=== PATIENT | female | born 1995 | race Caucasian/White ===

== ENCOUNTER 2021-01-28 06:50 | Inpatient (IN) | payer BC ==
--- NOTE | 2021-01-28 07:21 | PCM.LDHP ---
L&D History of Present Illness - General Date of Service: 01/28/21 Admit Problem/Dx: Admission Diagnosis/Problem Admission Diagnosis/Problem - History of Present Illness Introduction:: 25 year old at 39w1d presented for induction of labor. C with myself without complications. - Related Data Allergies/Adverse Reactions: Allergies Allergy/AdvReac Type Severity Reaction Status Date / Time No Known Allergies Allergy Verified 04/14/18 10:03 CDT H&P Review of Systems - Review of Systems: Review Of Systems: See Below General: Reports: No Symptoms HEENT: Reports: No Symptoms Pulmonary: Reports: No Symptoms Cardiovascular: Reports: No Symptoms Gastrointestinal: Reports: No Symptoms Genitourinary: Reports: No Symptoms Musculoskeletal: Reports: No Symptoms Skin: Reports: No Symptoms Psychiatric: Reports: No Symptoms Neurological: Reports: No Symptoms Hematologic/Lymphatic: Reports: No Symptoms Immunologic: Reports: No Symptoms L&D Exam - Exam Exam: See Below - OB Specific Contraction Intensity: Irritability Movement: Active Heart Tones: Present Heart Rate (FHR) Variability: Moderate (6-25 bmp) Presentation: Vertex - Kahn Score Kahn Score Cervix Position: Midposition Kahn Score Consistency: Medium Kahn Score Effacement: 51-70% Kahn Score Dilation: 1-2 cm Kahn Score Infant's Station: -3 Kahn Score Total: 5 - Exam General: Alert, Oriented HEENT: PERRLA, Conjunctiva Clear, EACs Clear, EOMI, Hearing Intact, Mucosa Moist & [place], Nares Patent, Normal Nasal Septum, Posterior Pharynx Clear, TMs Clear Neck: Supple, Trachea Midline Lungs: Clear to Auscultation, Normal Respiratory Effort Cardiovascular: Regular Rate, Regular Rhythm GI/Abdominal Exam: Normal Bowel Sounds, Soft, Non-Tender, No Organomegaly, No Distention, No Abnormal Bruit, No Mass, Pelvis Stable Rectal Exam: Normal Exam, Normal Rectal Tone Genitourinary: Normal external exam, Normal bimanual exam, Normal speculum exam Back Exam: Normal Inspection, Full Range of Motion Extremities: Normal Inspection, Normal Range of Motion, Non-Tender, No Pedal Edema, Normal Capillary Refill Skin: Warm, Dry, Intact Neurological: Cranial Nerves Intact, Reflexes Equal Bilateral Psychiatric: Alert, Normal Affect, Normal Mood Problem List Initiated/Reviewed/Updated: Yes Orders Last 24hrs: Here for induction. Understands fairly unfavorable cervix. Plan kidd bulb and cytotec.
[2021-01-28] MEDS ORDERED: Misoprostol 25 MCG (1/4 of 100 MCG) Tab ONE (07:44)
[2021-01-28] MEDS ORDERED: Misoprostol 25 MCG (1/4 of 100 MCG) Tab VAG ONE (07:45)
[2021-01-28] MEDS ORDERED: Ondansetron 4 MG/2 ML SDV IVPUSH PRN (08:08)
[2021-01-28] MEDS ORDERED: Sodium Chloride 0.9% 10 ML Syringe FLUSH PRN (08:08)
[2021-01-28] MEDS ORDERED: Lidocaine 1% 50 ML MDV INJECT ONE (08:08)
[2021-01-28] MEDS ORDERED: Nalbuphine 10 MG/1 ML Vial IVPUSH PRN (08:08)
[2021-01-28] MEDS ORDERED: Oxytocin/Lactated Ringers 10 UNIT/1,000 ML BAG IV SCH ×2 (08:30→15:00)
[2021-01-28] MEDS: Misoprostol 25 MCG (1/4 of 100 MCG) Tab VAG SCH ×3 (14:49→22:09)
--- NOTE | 2021-01-28 15:39 | PCM.PNLD ---
Labor Progress Note - VS & Meds Vital Signs: Last Vital Signs Temp 36.9 C 01/28/21 07:15 Pulse 120 H 01/28/21 07:15 Resp 16 01/28/21 07:15 BP 127/90 01/28/21 07:15 Pulse Ox 100 01/28/21 07:15 Active Medications: Current Medications Lactated Ringer's (Ringers, Lactated) 1,000 mls @ 100 mls/hr IV ASDIRECTED LAKESHA Oxytocin/Lactated Ringer's (Pitocin In Lr 10 Units/1,000 Ml) 10 unit in 1,000 mls @ 500 mls/hr IV .CONTINUOUS LAKESHA Oxytocin/Lactated Ringer's (Pitocin In Lr 10 Units/1,000 Ml) 10 unit in 1,000 mls @ 12 mls/hr IV TITRATE LAKESHA; Protocol Misoprostol (Misoprostol 25 Mcg (1/4 Of 100 Mcg) Tab) 25 mcg VAG Q4H LAKESHA Last Admin: 01/28/21 14:49 Dose: Not Given Documented by: Nalbuphine HCl (Nalbuphine 10 Mg/1 Ml Vial) 10 mg IVPUSH Q2H PRN PRN Reason: Pain Last Admin: 01/28/21 14:12 Dose: 10 mg Documented by: Ondansetron HCl (Ondansetron 4 Mg/2 Ml Sdv) 4 mg IVPUSH Q4H PRN PRN Reason: Nausea/Vomiting Last Admin: 01/28/21 11:34 Dose: 4 mg Documented by: Sodium Chloride (Sodium Chloride 0.9% 10 Ml Syringe) 10 ml FLUSH ASDIRECTED PRN PRN Reason: Keep Vein Open Discontinued Medications Lidocaine HCl (Lidocaine 1% 50 Ml Mdv) 50 ml INJECT ONETIME ONE Stop: 01/28/21 08:09 Last Admin: 01/28/21 09:53 Dose: Not Given Documented by: Misoprostol (Misoprostol 25 Mcg (1/4 Of 100 Mcg) Tab) Confirm Administered Dose 50 mcg .ROUTE .STK-MED ONE Stop: 01/28/21 07:45 Last Admin: 01/28/21 09:51 Dose: Not Given Documented by: Misoprostol (Misoprostol 25 Mcg (1/4 Of 100 Mcg) Tab) 50 mcg VAG ONETIME ONE Stop: 01/28/21 07:46 Last Admin: 01/28/21 07:45 Dose: 50 mcg Documented by: - Uterine Contractions Contraction Intensity: Irritability - Monitoring Heart Rate (FHR) Variability: Moderate (6-25 bmp) Accelerations: Present, 15x15 Strip Review: Category I - Vaginal Exam Dilation (cm): 5 Effacement (Percent): 80 Station: -2 Cervical Position: Midposition Vaginal Exam Comment: kidd bulb came out with gentle tug - Labor Progress (Free Text) Labor Progress: AROM clear fluid. Patient more comfortable with nubain. Doing well.
[2021-01-28] MEDS: Lactated Ringers 1,000 ML IV SCH ×2 (17:20→19:52)
[2021-01-28] MEDS ORDERED: diphenhydrAMINE 50 MG/ML SDV IVPUSH PRN (18:30)
[2021-01-28] MEDS ORDERED: Bupivacaine/fentaNYL/NS 100 ML Bag EPIDUR PRN (18:30)
[2021-01-28] MEDS ORDERED: ePHEDrine 50 MG/ML SDV IVPUSH PRN (18:30)
[2021-01-28] MEDS ORDERED: fentaNYL 100 MCG/2 ML SDV ONE (18:34)
--- NOTE | 2021-01-28 18:43 | PCM.PREANE ---
Preanesthetic Assessment - Procedure Proposed Procedure: Continuous Labor Epidural - Anesthesia/Transfusion/Family Hx Anesthesia History: Prior Anesthesia Reaction Type of Anesthesia Reaction: Excessive Nausea/Vomiting Family History of Anesthesia Reaction: No Transfusion History: No Prior Transfusion(s) Intubation History: Unknown Additional History: History of allergy to shrimp - Review of Systems General: No Symptoms Pulmonary: No Symptoms Cardiovascular: No Symptoms Gastrointestinal: Abdominal Pain (uterine contraction), Vomiting (Zofran relieved vomiting, GERD) Neurological: No Symptoms Other: Reports: Easy Bruising - Physical Assessment NPO Status Date: 01/28/21 NPO Status Time: 18:00 Vital Signs: Last Vital Signs Temp 98.5 F 01/28/21 07:15 Pulse 120 H 01/28/21 07:15 Resp 16 01/28/21 07:15 BP 127/90 01/28/21 07:15 Pulse Ox 100 01/28/21 07:15 Height: 1.65 m Weight: 95.39 kg Mental Status: Alert & Oriented x3 Airway Class: Mallampati = 2 Dentition: Reports: Normal Dentition Thyro-Mental Finger Breadths: 3 Mouth Opening Finger Breadths: 3 ROM/Head Extension: Full Lungs: Clear to Auscultation, Normal Respiratory Effort Cardiovascular: Regular Rate, Regular Rhythm - Lab Values: Laboratory Last Values WBC 9.87 K/mm3 (3.98-10.04) 01/28/21 08:30 RBC 4.19 M/mm3 (3.98-5.22) 01/28/21 08:30 Hgb 12.8 gm/dl (11.2-15.7) 01/28/21 08:30 Hct 38.0 % (34.1-44.9) 01/28/21 08:30 MCV 90.7 fl (79.4-94.8) 01/28/21 08:30 MCH 30.5 pg (25.6-32.2) 01/28/21 08:30 MCHC 33.7 g/dl (32.2-35.5) 01/28/21 08:30 RDW Std Deviation 43.0 fL (36.4-46.3) 01/28/21 08:30 Plt Count 267 K/mm3 (182-369) 01/28/21 08:30 MPV 9.4 fl (9.4-12.3) 01/28/21 08:30 Neut % (Auto) 80.7 % (34.0-71.1) H 01/28/21 08:30 Lymph % (Auto) 10.4 % (19.3-51.7) L 01/28/21 08:30 [place] % (Auto) 7.4 % (4.7-12.5) 01/28/21 08:30 Eos % (Auto) 0 (0.7-5.8) L 01/28/21 08:30 Baso % (Auto) 0.3 % (0.1-1.2) 01/28/21 08:30 Neut # (Auto) 7.96 K/mm3 (1.56-6.13) H 01/28/21 08:30 Lymph # (Auto) 1.03 K/mm3 (1.18-3.74) L 01/28/21 08:30 [place] # (Auto) 0.73 K/mm3 (0.24-0.36) H 01/28/21 08:30 Eos # (Auto) 0.00 K/mm3 (0.04-0.36) L 01/28/21 08:30 Baso # (Auto) 0.03 K/mm3 (0.01-0.08) 01/28/21 08:30 Manual Slide Review Normal smear 01/28/21 08:30 SARS-CoV-2 RNA (UMBERTO) Negative (NEGATIVE) 01/28/21 08:25 Labs reviewed and okay to proceed with ISIDRO - Allergies Allergies/Adverse Reactions: Allergies Allergy/AdvReac Type Severity Reaction Status Date / Time shrimp Allergy Rash Verified 01/28/21 08:08 - Anesthesia Plan Pre-Op Medication Ordered: None - Acknowledgements Anesthesia Type Planned: Epidural Pt an Appropriate Candidate for the Planned Anesthesia: Yes Alternatives and Risks of Anesthesia Discussed w Pt/Guardian: Yes Pt/Guardian Understands and Agrees with Anesthesia Plan: Yes PreAnesthesia Questionnaire HEENT History: Reports: Impaired Vision, Other (See Below) Other HEENT History: Pt wears glasses Cardiovascular History: Reports: None Respiratory History: Reports: None Gastrointestinal History: Reports: GERD Genitourinary History: Reports: None HOUSE PRINCIPAL History: Reports: Musculoskeletal History: Reports: None Neurological History: Reports: None Psychiatric History: Reports: None Endocrine/Metabolic History: Reports: None Hematologic History: Reports: None Immunologic History: Reports: None Oncologic (Cancer) History: Reports: None Dermatologic History: Reports: None - Infectious Disease History Infectious Disease History: Reports: None - Past Surgical History Head Surgeries/Procedures: Reports: None - SUBSTANCE USE Tobacco Use Status *Q: Never Tobacco User Second Hand Smoke Exposure: No Recreational Drug Use History: No - HOME MEDS Home Medications: Home Meds Pnv No.95/Ferrous Fum/Folic AC [ Vitamin Tablet] 1 each PO DAILY 01/28/21 [History] - CURRENT (IN HOUSE) MEDS Current Meds: Current Medications Diphenhydramine HCl (Diphenhydramine 50 Mg/Ml Sdv) 25 mg IVPUSH Q6H PRN PRN Reason: pruritis Ephedrine Sulfate (Ephedrine 50 Mg/Ml Sdv) 5 mg IVPUSH ASDIRECTED PRN PRN Reason: Hypotension Fentanyl (Fentanyl 100 Mcg/2 Ml Sdv) 100 mcg EPIDUR Q3H PRN PRN Reason: Pain Fentanyl/Bupivacaine HCl (Bupivacaine/Fentanyl/Ns 100 Ml Bag) 100 ml EPIDUR ASDIRECTED PRN PRN Reason: Pain Lactated Ringer's (Ringers, Lactated) 1,000 mls @ 100 mls/hr IV ASDIRECTED LAKESHA Last Admin: 01/28/21 17:20 Dose: 100 mls/hr Documented by: Oxytocin/Lactated Ringer's (Pitocin In Lr 10 Units/1,000 Ml) 10 unit in 1,000 mls @ 500 mls/hr IV .CONTINUOUS LAKESHA Oxytocin/Lactated Ringer's (Pitocin In Lr 10 Units/1,000 Ml) 10 unit in 1,000 mls @ 12 mls/hr IV TITRATE LAKESHA; Protocol Last Titration: 01/28/21 18:00 Dose: 4 munits/min, 24 mls/hr Documented by: Misoprostol (Misoprostol 25 Mcg (1/4 Of 100 Mcg) Tab) 25 mcg VAG Q4H LAKESHA Last Admin: 01/28/21 18:03 Dose: Not Given Documented by: Nalbuphine HCl (Nalbuphine 10 Mg/1 Ml Vial) 10 mg IVPUSH Q2H PRN PRN Reason: Pain Last Admin: 01/28/21 14:12 Dose: 10 mg Documented by: Ondansetron HCl (Ondansetron 4 Mg/2 Ml Sdv) 4 mg IVPUSH Q4H PRN PRN Reason: Nausea/Vomiting Last Admin: 01/28/21 11:34 Dose: 4 mg Documented by: Sodium Chloride (Sodium Chloride 0.9% 10 Ml Syringe) 10 ml FLUSH ASDIRECTED PRN PRN Reason: Keep Vein Open Discontinued Medications Fentanyl (Fentanyl 100 Mcg/2 Ml Sdv) Confirm Administered Dose 100 mcg .ROUTE .STK-MED ONE Stop: 01/28/21 18:35 Lidocaine HCl (Lidocaine 1% 50 Ml Mdv) 50 ml INJECT ONETIME ONE Stop: 01/28/21 08:09 Last Admin: 01/28/21 09:53 Dose: Not Given Documented by: Misoprostol (Misoprostol 25 Mcg (1/4 Of 100 Mcg) Tab) Confirm Administered Dose 50 mcg .ROUTE .STK-MED ONE Stop: 01/28/21 07:45 Last Admin: 01/28/21 09:51 Dose: Not Given Documented by: Misoprostol (Misoprostol 25 Mcg (1/4 Of 100 Mcg) Tab) 50 mcg VAG ONETIME ONE Stop: 01/28/21 07:46 Last Admin: 01/28/21 07:45 Dose: 50 mcg Documented by:
[2021-01-28] MEDS ORDERED: Scopolamine 1.5 MG Transdermal Patch TRDERM PRN (18:50)
[2021-01-28] MEDS: fentaNYL 100 MCG/2 ML SDV EPIDUR PRN (19:30)
[2021-01-29] MEDS: fentaNYL 100 MCG/2 ML SDV EPIDUR PRN ×2 (00:37→05:27)
[2021-01-29] MEDS: Lactated Ringers 1,000 ML IV SCH (01:38)
[2021-01-29] MEDS: Misoprostol 25 MCG (1/4 of 100 MCG) Tab VAG SCH (05:39)
[2021-01-29] MEDS: Ibuprofen 600 MG Tab PO PRN ×3 (08:45→22:03)
--- NOTE | 2021-01-29 09:22 | PCM.SN.2 ---
- Free Text/Narrative Note: Stage I - patient presented for induction of labor. Giron bulb and cytotec placed. AROM clear fluid. Progressed to complete. Stage II - of viable male, weight 7#14oz at 0718. Head delivered in controlled manner over intact perineum. Body and shoulders atraumatically. To maternal abdomen. Cord clamped and cut. Positive cry. Stage III - of intact placenta. 3vc. 2nd degree laceration repaired with 3-0 vicryl. EBL 250.
[2021-01-29] MEDS ORDERED: Witch Hazel Medicated Pads 40/Jar TOP PRN (09:24)
[2021-01-29] MEDS ORDERED: Benzocaine/Menthol 20%-0.5% Spray 56 GM Canister TOP PRN (09:24)
[2021-01-29] MEDS ORDERED: Measles, Mumps & Rubella Vaccine 0.5 ML SDV SUBCUT ONE (16:07)
[2021-01-29] MEDS ORDERED: Bupivacaine 0.25% 10 ML SDV ONE (20:00)
[2021-01-29] MEDS ORDERED: Lidocaine 1.5% with EPINEPHrine 1:200,000 5 ML Amp ONE (20:00)
[2021-01-29] MEDS ORDERED: Docusate Sodium 100 MG Cap PO SCH (22:00)
[2021-01-30] MEDS: Ibuprofen 600 MG Tab PO PRN (06:13)
--- NOTE | 2021-01-30 07:19 | PCM48HPAN ---
Post Anesthesia Note - EVALUATION WITHIN 48HRS OF ANESTHETIC Vital Signs in Normal Range: Yes Patient Participated in Evaluation: Yes Respiratory Function Stable: Yes Airway Patent: Yes Cardiovascular Function Stable: Yes Hydration Status Stable: Yes Pain Control Satisfactory: Yes Nausea and Vomiting Control Satisfactory: Yes Mental Status Recovered: Yes Vital Signs: Last Vital Signs Temp 97.5 F 01/30/21 05:20 Pulse 94 01/30/21 05:20 Resp 16 01/30/21 05:20 BP 119/70 01/30/21 05:20 Pulse Ox 99 01/30/21 05:20
--- NOTE | 2021-01-30 09:06 | PCM.DCSUM1 ---
Discharge Summary - Hospital Course Free Text/Narrative:: Herminia is a 25-year-old 1 now para 1-0-0-1 white female admitted on 01/29/2021 at 39-1/7 weeks gestational age for elective induction of labor. Stage I - patient presented for induction of labor. Giron bulb and cytotec placed. AROM clear fluid. Progressed to complete. Stage II - of viable male, weight 7#14oz at 0718. Head delivered in controlled manner over intact perineum. Body and shoulders atraumatically. To maternal abdomen. Cord clamped and cut. Positive cry. Stage III - of intact placenta. 3vc. 2nd degree laceration repaired with 3-0 vicryl. EBL 250. Patient is nursing without problems. She is ambulating well, has minimal lochia, is voiding without concerns and is desiring discharge home. Her vital signs are stable and she is afebrile. - Discharge Data Discharge Date: 01/30/21 Discharge Disposition: Home, Self-Care 01 Condition: Good - Referral to Home Health Primary Care Physician: Nidia Alvarado MD - Patient Instructions Diet: Regular Diet as Tolerated (Nursing diet with increased calories and calcium as recommended) Activity: As Tolerated (No intercourse or tampons until bleeding resolves) Driving: May Drive Today Showering/Bathing: May Shower (May take a bath) Notify Provider of: Fever, Increased Pain, Swelling and Redness, Nausea and/or Vomiting - Discharge Plan Home Medications: Home Meds Pnv No.95/Ferrous Fum/Folic AC [ Vitamin Tablet] 1 each PO DAILY 01/28/21 [History] Docusate Sodium [Colace] 100 mg PO BID cap 01/30/21 [Rx] Ibuprofen [Motrin] 600 mg PO Q6H PRN tablet 01/30/21 [Rx] Referrals: Nidia Alvarado MD [Primary Care Provider] - (Return to [facility] to call for appointment.) - Discharge Summary/Plan Comment DC Time >30 min.: No Discharge Summary/Plan Comment: Discharge instructions: 1. Discharge home 2. Diet, activity and follow-up discussed with patient. Recommend nursing diet with increased calories and calcium. 3. Precautions given concern increased pain, bleeding, temperature, signs/symptoms of DVT/PE. 4. Medications per home medication was printed, discussed with and given to the patient. 5. Return to clinic-Dr. Alvarado at [facility] in 2 weeks. Diagnosis: Term -delivered Condition: Good - Patient Data Vitals - Most Recent: Last Vital Signs Temp 36.4 C 01/30/21 05:20 Pulse 94 01/30/21 05:20 Resp 16 01/30/21 05:20 BP 119/70 01/30/21 05:20 Pulse Ox 99 01/30/21 05:20 Weight - Most Recent: 95.39 kg Med Orders - Current: Current Medications Benzocaine/Menthol (Benzocaine/Menthol 20%-0.5% [place] 56 Gm Canister) 0 gm TOP ASDIRECTED PRN PRN Reason: Perineal Comfort Measure Last Admin: 01/29/21 09:46 Dose: 1 canister Documented by: Docusate Sodium (Docusate Sodium 100 Mg Cap) 100 mg PO BID LAKESHA Last Admin: 01/29/21 22:03 Dose: 100 mg Documented by: Ibuprofen (Ibuprofen 600 Mg Tab) 600 mg PO Q6H PRN PRN Reason: Mild pain or fever Last Admin: 01/30/21 06:13 Dose: 600 mg Documented by: Deandra Messina (Deandra Benjaminel Medicated Pads 40/Jar) 1 pad TOP ASDIRECTED PRN PRN Reason: Perineal Comfort Measure Last Admin: 01/29/21 09:46 Dose: 1 container Documented by: Discontinued Medications Diphenhydramine HCl (Diphenhydramine 50 Mg/Ml Sdv) 25 mg IVPUSH Q6H PRN PRN Reason: pruritis Ephedrine Sulfate (Ephedrine 50 Mg/Ml Sdv) 5 mg IVPUSH ASDIRECTED PRN PRN Reason: Hypotension Fentanyl (Fentanyl 100 Mcg/2 Ml Sdv) 100 mcg EPIDUR Q3H PRN PRN Reason: Pain Last Admin: 01/29/21 05:27 Dose: 100 mcg Documented by: Fentanyl (Fentanyl 100 Mcg/2 Ml Sdv) Confirm Administered Dose 100 mcg .ROUTE .STK-MED ONE Stop: 01/28/21 18:35 Last Admin: 01/28/21 18:40 Dose: Not Given Documented by: Fentanyl/Bupivacaine HCl (Bupivacaine/Fentanyl/Ns 100 Ml Bag) 100 ml EPIDUR ASDIRECTED PRN PRN Reason: Pain Last Admin: 01/28/21 19:17 Dose: 100 ml Documented by: Lactated Ringer's (Ringers, Lactated) 1,000 mls @ 100 mls/hr IV ASDIRECTED LAKESHA Last Admin: 01/29/21 01:38 Dose: 100 mls/hr Documented by: Oxytocin/Lactated Ringer's (Pitocin In Lr 10 Units/1,000 Ml) 10 unit in 1,000 mls @ 500 mls/hr IV .CONTINUOUS LAKESHA Oxytocin/Lactated Ringer's (Pitocin In Lr 10 Units/1,000 Ml) 10 unit in 1,000 mls @ 12 mls/hr IV TITRATE LAKESHA; Protocol Last Titration: 01/29/21 02:14 Dose: 6 munits/min, 36 mls/hr Documented by: Lidocaine HCl (Lidocaine 1% 50 Ml Mdv) 50 ml INJECT ONETIME ONE Stop: 01/28/21 08:09 Last Admin: 01/28/21 09:53 Dose: Not Given Documented by: Measles/Mumps/Rubella Vaccine Live (Measles, Mumps & Rubella Vaccine 0.5 Ml Sdv) 0.5 ml SUBCUT .ONCE ONE Stop: 01/29/21 16:08 Miscellaneous Information (Remove Patch Scopolamine) 1 ea TRDERM Q72H [facility] Stop: 01/31/21 19:01 Miscellaneous Medication (Phenylephrine Hcl In 0.9% Nacl 1 Mg/10 Ml Syringe) 0.1 mg IVPUSH Q10M PRN PRN Reason: Hypotension Misoprostol (Misoprostol 25 Mcg (1/4 Of 100 Mcg) Tab) Confirm Administered Dose 50 mcg .ROUTE .STK-MED ONE Stop: 01/28/21 07:45 Last Admin: 01/28/21 09:51 Dose: Not Given Documented by: Misoprostol (Misoprostol 25 Mcg (1/4 Of 100 Mcg) Tab) 50 mcg VAG ONETIME ONE Stop: 01/28/21 07:46 Last Admin: 01/28/21 07:45 Dose: 50 mcg Documented by: Misoprostol (Misoprostol 25 Mcg (1/4 Of 100 Mcg) Tab) 25 mcg VAG Q4H LAKESHA Last Admin: 01/29/21 05:39 Dose: Not Given Documented by: Nalbuphine HCl (Nalbuphine 10 Mg/1 Ml Vial) 10 mg IVPUSH Q2H PRN PRN Reason: Pain Last Admin: 01/28/21 14:12 Dose: 10 mg Documented by: Ondansetron HCl (Ondansetron 4 Mg/2 Ml Sdv) 4 mg IVPUSH Q4H PRN PRN Reason: Nausea/Vomiting Last Admin: 01/28/21 11:34 Dose: 4 mg Documented by: Scopolamine (Scopolamine 1.5 Mg Transdermal Patch) 1.5 mg TRDERM ONETIME PRN PRN Reason: PONV Sodium Chloride (Sodium Chloride 0.9% 10 Ml Syringe) 10 ml FLUSH ASDIRECTED PRN PRN Reason: Keep Vein Open
== END 2021-01-30 11:15 | disposition home or self-care (01) | DRG 560 ==
LOC: JD.OBCHECK 06:50 → JD.OB 06:51 → OBSVTOIN 01-29 07:18 → JD.OB 01-29 07:19
PROVIDERS: ADMIT Obstetrics & Gynecology; ATTEND Obstetrics & Gynecology
PROC: 10E0XZZ Delivery of Products of Conception, External Approach (ICD-10-PCS; principal; 2021-01-29)
PROC: 10907ZC Drainage of Amniotic Fluid, Therapeutic from Products of Conception, Via Natural or Artificial Opening (ICD-10-PCS; 2021-01-29)
PROC: 3E0P7VZ Introduction of Hormone into Female Reproductive, Via Natural or Artificial Opening (ICD-10-PCS; 2021-01-29)
PROC: 0KQM0ZZ Repair Perineum Muscle, Open Approach (ICD-10-PCS; 2021-01-29)
DX: O99.62 Diseases of the digestive system complicating childbirth (principal); Z37.0 Single live birth; O70.1 Second degree perineal laceration during delivery; K21.9 Gastro-esophageal reflux disease without esophagitis; Z20.822 Contact with and (suspected) exposure to COVID-19; Z23 Encounter for immunization; Z3A.39 39 weeks gestation of pregnancy
CPT/HCPCS: 01967; 36415; 51702; 59025; 59409; 85025; 86592; 86803; 90471; 90707; A9270-GY; J2300; J2405; J2590; J3010; J3490; J7120; U0002

== ENCOUNTER 2023-11-28 07:07 | Inpatient (IN) | payer OTHER ==
[~2023-11-28 07:07] MED LIST: Lidocaine 1% 10 ML MDV ONE
[2023-11-28] MEDS ORDERED: Sodium Chloride 0.9% 10 ML Syringe FLUSH PRN (07:20)
[2023-11-28] MEDS ORDERED: Nalbuphine HCl 10 MG/ 1ML Amp IVPUSH PRN (07:20)
[2023-11-28] MEDS ORDERED: Lidocaine 1% 50 ML MDV INJECT PRN (07:20)
[2023-11-28] MEDS ORDERED: Oxytocin/Lactated Ringers 30 UNIT/500 ML BAG IV SCH ×2 (07:30→18:35)
[2023-11-28 07:35] LABS: BASOPHILS ABSOLUTE AUTO 0.1 K/mm3 (0.0-0.2); BASOPHILS PERCENT AUTO 0.6 % (0.0-1.0); HEMATOCRIT 38.7 % (37.0-47.0); HEMOGLOBIN 13.3 gm/dl (12.0-16.0); IMMATURE GRAN ABSOLUTE AUTO 0.12 K/mm3 (0.00-0.05); IMMATURE GRAN PERCENT AUTO 1.4 % (0.0-0.4); LYMPHOCYTES PERCENT AUTO 11.8 % (24.0-44.0); MEAN CORPUSCULAR HEMOGLOBIN 31.1 pg (28.0-32.0); MEAN CORPUSCULAR HGB CONC 34.4 g/dl (32.0-36.0); MEAN CORPUSCULAR VOLUME 90.6 fl (83.0-99.0); MEAN PLATELET VOLUME 9.2 fl (9.4-12.3); MONOCYTES ABSOLUTE AUTO 0.6 K/mm3 (0.0-0.8); MONOCYTES PERCENT AUTO 6.9 % (0.0-8.0); NEUTROPHILS ABSOLUTE AUTO 6.9 K/mm3 (1.8-7.7); NEUTROPHILS PERCENT AUTO 79.3 % (41.0-71.0); PLATELET COUNT,PLT 217 K/mm3 (150-400); RED BLOOD CELL COUNT 4.27 M/mm3 (4.10-5.30); WHITE BLOOD CELL COUNT,WBC 8.73 K/mm3 (3.9-11.3)
[2023-11-28] MEDS: Lactated Ringers 1,000 ML IV SCH (08:12)
[2023-11-28] MEDS: Oxytocin/Lactated Ringers 30 UNIT/500 ML BAG IV SCH (08:12)
[2023-11-28] MEDS: Sodium Chloride 0.9% 10 ML Syringe FLUSH SCH (09:56)
[2023-11-28] MEDS ORDERED: Phenylephrine 1% 10 MG/ML SDV IVPUSH PRN (10:03)
[2023-11-28] MEDS ORDERED: diphenhydrAMINE 50 MG/ML SDV IVPUSH PRN (10:03)
[2023-11-28] MEDS ORDERED: ePHEDrine 50 MG/ML SDV IVPUSH PRN (10:03)
[2023-11-28] MEDS: fentaNYL 100 MCG/2 ML SDV EPIDUR PRN (13:39)
[2023-11-28] MEDS: Bupivacaine/fentaNYL/NS 100 ML Bag EPIDUR PRN (13:39)
[2023-11-28] MEDS ORDERED: Magnesium Hydroxide 400 MG/5 ML Susp 30 ML Cup PO PRN (18:35)
[2023-11-28] MEDS ORDERED: Docusate Sodium 100 MG Cap PO PRN (18:35)
[2023-11-28] MEDS ORDERED: Hydrocortisone Acetate 25 MG Supp RECTAL PRN (18:35)
[2023-11-28] MEDS ORDERED: Acetaminophen 325 MG Tab PO PRN (18:35)
[2023-11-28] MEDS ORDERED: Simethicone 80 MG Tab.Chew PO PRN (18:35)
[2023-11-28] MEDS: Witch Hazel Medicated Pads 40/Jar TOP PRN (19:33)
[2023-11-28] MEDS: Benzocaine/Menthol 20%-0.5% Spray 78 GM Cannister TOP PRN (19:34)
[2023-11-28] MEDS: Ibuprofen 600 MG Tab PO PRN (21:45)
[2023-11-29] MEDS: Prenatal Multivitamin with Calcium/Folic Acid/Iron Tab PO SCH (08:00)
== END 2023-11-29 18:50 | disposition home or self-care (01) | DRG 807 ==
LOC: OBSVTOIN 07:07 → JD.OB 07:07 → UNDODISOB 11-29 18:50
PROVIDERS: ADMIT Obstetrics & Gynecology; ATTEND Obstetrics & Gynecology
PROC: 10E0XZZ Delivery of Products of Conception, External Approach (ICD-10-PCS; principal; 2023-11-28)
PROC: 0KQM0ZZ Repair Perineum Muscle, Open Approach (ICD-10-PCS; 2023-11-28)
PROC: 10907ZC Drainage of Amniotic Fluid, Therapeutic from Products of Conception, Via Natural or Artificial Opening (ICD-10-PCS; 2023-11-28)
PROC: 3E0P7VZ Introduction of Hormone into Female Reproductive, Via Natural or Artificial Opening (ICD-10-PCS; 2023-11-28)
PROC: 3E0R3BZ Introduction of Anesthetic Agent into Spinal Canal, Percutaneous Approach (ICD-10-PCS; 2023-11-28)
PROC: 00HU33Z Insertion of Infusion Device into Spinal Canal, Percutaneous Approach (ICD-10-PCS; 2023-11-28)
DX: O70.1 Second degree perineal laceration during delivery (principal); Z37.0 Single live birth; Z3A.39 39 weeks gestation of pregnancy; Z79.899 Other long term (current) drug therapy; Z91.013 Allergy to seafood; Z98.890 Other specified postprocedural states
CPT/HCPCS: 36415; 51702; 59025; 59409; 85025; 86592; A9270-GY; J3010; J3490; J7120; J7999